=== PATIENT | female | born 1990 | race Hispanic/Latino ===

== ENCOUNTER 2018-11-25 04:39 | Emergency (ER) | payer OTHER ==
[2018-11-25] MEDS ORDERED: MORPHINE SULFATE 4 MG/1ML SYG ONE ×2 (05:34→08:03)
[2018-11-25] MEDS ORDERED: ONDANSETRON HCL 4 MG/2 ML VIAL ONE (05:34)
[2018-11-25] MEDS ORDERED: TETANUS/DIPHTHERIA TOXOID [ADULT] 0.5 ML VIAL IM ONE (05:35)
[2018-11-25 05:57] LABS: BASOPHILS % (AUTO) 0.5 % (0.0-5.0); EOSINOPHILS % (AUTO) 0.7 % (0.0-8.0); HEMATOCRIT 39.7 % (36-48); LYMPHOCYTES % (AUTO) 12.8 % (21.0-51.0); MEAN CORPUSCULAR HEMOGLOBIN 32.1 pg (27.0-33.0); MEAN CORPUSCULAR HGB CONC 34.3 g/dL (32.0-36.0); MEAN CORPUSCULAR VOLUME 93.7 fL (79-99); MONOCYTES % (AUTO) 3.8 % (3.0-13.0); NEUTROPHILS % (AUTO) 82.2 % (40.0-77.0); PLATELET COUNT (AUTO) 369 K/uL (130-400); RED BLOOD CELL COUNT(AUTO) 4.23 MIL/uL (4.00-5.50); RED CELL DISTRIBUTION WIDTH 13.8 % (11.0-15.5)
[2018-11-25 06:12] LABS: ALBUMIN 3.4 g/dL (3.5-5.0); BILIRUBIN,TOTAL 0.2 mg/dL (0.2-1.0); CREATININE 0.6 mg/dL (0.5-1.5); INR 0.92 (0.85-1.15); PARTIAL THROMBOPLASTIN TIME 26.4 SEC (26.3-35.5); POTASSIUM 3.8 mmol/L (3.5-5.1); PROTHROMBIN TIME 9.7 SEC (9.6-11.6); TOTAL PROTEIN, SERUM 7.6 g/dL (6.0-8.3)
[2018-11-25] MEDS ORDERED: CEFAZOLIN SODIUM 1 GM VIAL ONE (09:15)
== END 2018-11-25 10:19 | disposition home or self-care (01) ==
LOC: EDH 04:39
DX: S01.01XA Laceration without foreign body of scalp, initial encounter (principal); Y04.8XXA Assault by other bodily force, initial encounter; Y93.89 Activity, other specified; Y92.89 Other specified places as the place of occurrence of the external cause; Y99.8 Other external cause status
CPT/HCPCS: 12034; 36415; 70450; 70486; 80053; 81025; 85025; 85610; 85730; 90471; 90714; 96365; 96375; 96376; 99285; J0690; J2270 ×2; J2405

== ENCOUNTER 2019-02-16 22:34 | Emergency (ER) | payer OTHER ==
[2019-02-16] MEDS ORDERED: DICYCLOMINE HCL 20 MG TAB ONE (23:18)
[2019-02-16 23:25] LABS: APPEARANCE,URINE Cloudy (CLEAR); BILIRUBIN,URINE Negative (NEGATIVE); COLOR,URINE Yellow (YELLOW); GLUCOSE, URINE (UA) Negative (NEGATIVE); KETONES,URINE Negative (NEGATIVE); LEUKOCYTE ESTERASE ,URINE Trace (NEGATIVE); NITRATE,URINE Negative (NEGATIVE); OCCULT BLOOD,URINE Negative (NEGATIVE); PROTEIN,URINE Negative (NEGATIVE)
[2019-02-16 23:27] LABS: HCG,QUAL RESULT NEGATIVE (NEGATIVE)
[2019-02-16] MEDS ORDERED: LEVOFLOXACIN 500 MG TABLET ONE (23:56)
[2019-02-17] LABS: BACTERIA,URINE Few /HPF (None Seen); RBC,URINE 0-1 /HPF (0-1); WBC,URINE 0-1 /HPF (0-1)
== END 2019-02-17 00:03 | disposition home or self-care (01) ==
LOC: EDH 22:34
DX: R19.7 Diarrhea, unspecified (principal)
CPT/HCPCS: 81001; 81025

== ENCOUNTER 2019-05-08 18:20 | Emergency (ER) | payer OTHER ==
[2019-05-08 18:54] LABS: APPEARANCE,URINE Clear (CLEAR); BILIRUBIN,URINE Negative (NEGATIVE); COLOR,URINE Yellow (YELLOW); GLUCOSE, URINE (UA) Negative (NEGATIVE); KETONES,URINE Negative (NEGATIVE); LEUKOCYTE ESTERASE ,URINE Negative (NEGATIVE); NITRATE,URINE Negative (NEGATIVE); OCCULT BLOOD,URINE Negative (NEGATIVE); PROTEIN,URINE Negative (NEGATIVE); UROBILINOGEN,URINE 0.2 mg/dL (0.2-1.0)
== END 2019-05-08 20:57 | disposition home or self-care (01) ==
LOC: EDH 18:20
DX: R30.0 Dysuria (principal); M54.5 Low back pain; R11.0 Nausea
CPT/HCPCS: 81003; 81025

== ENCOUNTER 2019-05-24 18:42 | Emergency (ER) | payer OTHER ==
[2019-05-24 19:47] LABS: BASOPHILS % (AUTO) 0.8 % (0.0-5.0); HEMATOCRIT 39.6 % (36-48); LYMPHOCYTES % (AUTO) 26.6 % (21.0-51.0); MEAN CORPUSCULAR HEMOGLOBIN 31.8 pg (27.0-33.0); MEAN CORPUSCULAR HGB CONC 34.2 g/dL (32.0-36.0); MONOCYTES % (AUTO) 9.5 % (3.0-13.0); NEUTROPHILS % (AUTO) 61.1 % (40.0-77.0); NUCLEATED RED BLOOD CELLS 0.1 % (0.0-0.19); PLATELET COUNT (AUTO) 321 K/uL (130-400); RED BLOOD CELL COUNT(AUTO) 4.26 MIL/uL (4.00-5.50); RED CELL DISTRIBUTION WIDTH 14.7 % (11.0-15.5); WHITE BLOOD COUNT (AUTO) 9.9 K/uL (4.8-10.8)
[2019-05-24 19:53] LABS: APPEARANCE,URINE Clear (CLEAR); BILIRUBIN,URINE Negative (NEGATIVE); COLOR,URINE Dark Yellow (YELLOW); GLUCOSE, URINE (UA) Negative (NEGATIVE); KETONES,URINE Negative (NEGATIVE); LEUKOCYTE ESTERASE ,URINE Negative (NEGATIVE); NITRATE,URINE Negative (NEGATIVE); OCCULT BLOOD,URINE Negative (NEGATIVE); PROTEIN,URINE Trace mg/dL (NEGATIVE)
[2019-05-24 20:00] LABS: AMPHET/METH SCREEN,URINE NEGATIVE (NEGATIVE); BARBITURATE SCREEN, URINE NEGATIVE (NEGATIVE); BENZODIAZEPINES SCREEN,URINE POSITIVE (NEGATIVE); CANNABINOID SCREEN,URINE POSITIVE (NEGATIVE); COCAINE SCREEN,URINE NEGATIVE (NEGATIVE); HCG,QUAL RESULT POSITIVE (NEGATIVE); OPIATE SCREEN,URINE NEGATIVE (NEGATIVE); PHENCYCLIDINE SCREEN,URINE NEGATIVE (NEGATIVE)
[2019-05-24 20:07] LABS: BACTERIA,URINE Few /HPF (None Seen); MUCUS,URINE Moderate LPF (None Seen); RBC,URINE 0-1 /HPF (0-1); SQUAMOUS EPITHELIAL CELL,UR Few /HPF (0-2)
[2019-05-24 20:40] LABS: CREATININE 0.7 mg/dL (0.5-1.5)
[2019-05-24 20:44] LABS: ALBUMIN 3.4 g/dL (3.5-5.0); BILIRUBIN,TOTAL 0.3 mg/dL (0.2-1.0); TOTAL PROTEIN, SERUM 7.4 g/dL (6.0-8.3)
== END 2019-05-24 22:04 | disposition home or self-care (01) ==
LOC: EDH 18:42
DX: O26.891 Other specified pregnancy related conditions, first trimester (principal); R51 Headache; R03.0 Elevated blood-pressure reading, without diagnosis of hypertension; R11.0 Nausea; F41.9 Anxiety disorder, unspecified; F32.9 Major depressive disorder, single episode, unspecified; Z88.8 Allergy status to other drugs, medicaments and biological substances; Z3A.01 Less than 8 weeks gestation of pregnancy
CPT/HCPCS: 36415; 80053; 80305; 81001; 81025; 84702; 85025

== ENCOUNTER 2019-11-05 08:45 | Emergency (ER) | payer OTHER ==
[2019-11-05] MEDS ORDERED: SODIUM CHLORIDE 0.9% 1000ML 1,000 ML IV ONE (09:02)
[2019-11-05] MEDS ORDERED: DiphenhydrAMINE HCL 50 MG/ML VIAL ONE (09:04)
[2019-11-05] MEDS ORDERED: METHYLPREDNISOLONE SOD SUCC 125MG/2ML VIAL ONE (09:04)
[2019-11-05] MEDS ORDERED: FAMOTIDINE/PF 20 MG/2 ML VIAL IV ONE (09:05)
== END 2019-11-05 11:11 | disposition home or self-care (01) ==
LOC: EDH 08:45
DX: T78.40XA Allergy, unspecified, initial encounter (principal); L50.9 Urticaria, unspecified; F41.9 Anxiety disorder, unspecified; F32.9 Major depressive disorder, single episode, unspecified; X58.XXXA Exposure to other specified factors, initial encounter
CPT/HCPCS: 96374; 96375; 99284; J1200; J2930; J3490; J7030

== ENCOUNTER 2019-11-21 08:28 | Emergency (ER) | payer OTHER ==
[2019-11-21 09:07] LABS: APPEARANCE,URINE Cloudy (CLEAR); BILIRUBIN,URINE Negative (NEGATIVE); COLOR,URINE Yellow (YELLOW); GLUCOSE, URINE (UA) Negative (NEGATIVE); KETONES,URINE Trace mg/dL (NEGATIVE); LEUKOCYTE ESTERASE ,URINE Moderate (NEGATIVE); NITRATE,URINE Negative (NEGATIVE); OCCULT BLOOD,URINE Negative (NEGATIVE); PROTEIN,URINE Negative (NEGATIVE)
[2019-11-21] MEDS ORDERED: IBUPROFEN 200 MG TAB ONE (09:08)
[2019-11-21] MEDS ORDERED: IBUPROFEN 400 MG TABLET ONE (09:08)
[2019-11-21 09:13] LABS: HCG,QUAL RESULT NEGATIVE (NEGATIVE)
[2019-11-21 09:18] LABS: TRICHOMONAS,URINE Few /LPF (None Seen)
[2019-11-21 09:19] LABS: BACTERIA,URINE Few /HPF (None Seen); MUCUS,URINE Many LPF (None Seen); SQUAMOUS EPITHELIAL CELL,UR Many /HPF (0-2)
[2019-11-21 09:25] LABS: AMPHET/METH SCREEN,URINE POSITIVE (NEGATIVE); BARBITURATE SCREEN, URINE NEGATIVE (NEGATIVE); BENZODIAZEPINES SCREEN,URINE POSITIVE (NEGATIVE); CANNABINOID SCREEN,URINE POSITIVE (NEGATIVE); COCAINE SCREEN,URINE NEGATIVE (NEGATIVE); OPIATE SCREEN,URINE NEGATIVE (NEGATIVE); PHENCYCLIDINE SCREEN,URINE NEGATIVE (NEGATIVE)
== END 2019-11-21 11:33 | disposition home or self-care (01) ==
LOC: EDH 08:28
DX: S20.219A Contusion of unspecified front wall of thorax, initial encounter (principal); Y08.89XA Assault by other specified means, initial encounter; Y93.89 Activity, other specified; Y92.89 Other specified places as the place of occurrence of the external cause; Y99.8 Other external cause status; Z88.8 Allergy status to other drugs, medicaments and biological substances
CPT/HCPCS: 71045; 80305; 81001; 81025; 87088

== ENCOUNTER 2020-03-25 19:29 | Emergency (ER) | payer OTHER ==
[2020-03-25] MEDS ORDERED: ONDANSETRON HCL 4 MG/2 ML VIAL IVP ONE (19:30)
[2020-03-25] MEDS ORDERED: SODIUM CHLORIDE 0.9% 1000ML 1,000 ML IV ONE (19:30)
[2020-03-25 20:00] LABS: APPEARANCE,URINE Cloudy (CLEAR); BILIRUBIN,URINE Negative (NEGATIVE); COLOR,URINE Yellow (YELLOW); GLUCOSE, URINE (UA) Negative (NEGATIVE); KETONES,URINE Negative (NEGATIVE); LEUKOCYTE ESTERASE ,URINE Small (NEGATIVE); NITRATE,URINE Negative (NEGATIVE); OCCULT BLOOD,URINE Negative (NEGATIVE); PH,URINE 8.5 (5.0-8.0); PROTEIN,URINE Trace mg/dL (NEGATIVE)
[2020-03-25 20:00] LABS: BASOPHILS % (AUTO) 0.4 % (0.0-5.0); EOSINOPHILS % (AUTO) 1.6 % (0.0-8.0); HEMATOCRIT 38.4 % (36-48); LYMPHOCYTES % (AUTO) 25.6 % (21.0-51.0); MEAN CORPUSCULAR HEMOGLOBIN 32.2 pg (27.0-33.0); MEAN CORPUSCULAR HGB CONC 34.4 g/dL (32.0-36.0); MEAN CORPUSCULAR VOLUME 93.7 fL (79-99); MONOCYTES % (AUTO) 8.3 % (3.0-13.0); NEUTROPHILS % (AUTO) 63.7 % (40.0-77.0); PLATELET COUNT (AUTO) 347 K/uL (130-400); WHITE BLOOD COUNT (AUTO) 13.5 K/uL (4.8-10.8)
[2020-03-25 20:03] LABS: HCG,QUAL RESULT POSITIVE (NEGATIVE)
[2020-03-25 20:10] LABS: BACTERIA,URINE Few /HPF (None Seen)
[2020-03-25 20:11] LABS: MUCUS,URINE Few LPF (None Seen); SQUAMOUS EPITHELIAL CELL,UR Few /HPF (0-2)
[2020-03-25 20:29] LABS: CREATININE 0.7 mg/dL (0.5-1.5); POTASSIUM 3.3 mmol/L (3.5-5.1)
[2020-03-25 20:39] LABS: ALBUMIN 3.4 g/dL (3.5-5.0); BILIRUBIN,TOTAL 0.2 mg/dL (0.2-1.0); TOTAL PROTEIN, SERUM 7.3 g/dL (6.0-8.3)
== END 2020-03-25 22:48 | disposition home or self-care (01) ==
LOC: EDH 19:29
DX: O21.9 Vomiting of pregnancy, unspecified (principal); F41.9 Anxiety disorder, unspecified; F32.9 Major depressive disorder, single episode, unspecified; Z3A.00 Weeks of gestation of pregnancy not specified; Z88.8 Allergy status to other drugs, medicaments and biological substances
CPT/HCPCS: 36415; 76801; 80053; 81001; 81025; 83690; 84702; 85025; 96374; 99284; J2405; J7030

== ENCOUNTER 2020-04-27 20:41 | Emergency (ER) | payer OTHER ==
[2020-04-27 21:36] LABS: BASOPHILS % (AUTO) 0.4 % (0.0-5.0); EOSINOPHILS % (AUTO) 1.4 % (0.0-8.0); HEMATOCRIT 40.6 % (36-48); LYMPHOCYTES % (AUTO) 21.4 % (21.0-51.0); MEAN CORPUSCULAR HGB CONC 34.2 g/dL (32.0-36.0); MEAN CORPUSCULAR VOLUME 93.3 fL (79-99); MONOCYTES % (AUTO) 6.9 % (3.0-13.0); NEUTROPHILS % (AUTO) 69.7 % (40.0-77.0); PLATELET COUNT (AUTO) 351 K/uL (130-400); RED BLOOD CELL COUNT(AUTO) 4.35 MIL/uL (4.00-5.50); RED CELL DISTRIBUTION WIDTH 11.8 % (11.0-15.5); WHITE BLOOD COUNT (AUTO) 12.1 K/uL (4.8-10.8)
[2020-04-30] MEDS ORDERED: PREN1TAB63 PO (16:04)
== END 2020-04-27 23:08 | disposition home or self-care (01) ==
LOC: EDH 20:41
DX: O20.0 Threatened abortion (principal); F41.9 Anxiety disorder, unspecified; F32.9 Major depressive disorder, single episode, unspecified; Z88.6 Allergy status to analgesic agent; Z3A.09 9 weeks gestation of pregnancy
CPT/HCPCS: 36415; 76817; 84702; 85025; 86900; 86901

== ENCOUNTER 2020-05-01 11:07 | Day surgery (SDC) | payer OTHER ==
[2020-04-30 12:45] LABS: BASOPHILS % (AUTO) 0.4 % (0.0-5.0); EOSINOPHILS % (AUTO) 1.8 % (0.0-8.0); HEMATOCRIT 41.4 % (36-48); LYMPHOCYTES % (AUTO) 27.2 % (21.0-51.0); MEAN CORPUSCULAR HEMOGLOBIN 31.7 pg (27.0-33.0); MEAN CORPUSCULAR HGB CONC 33.3 g/dL (32.0-36.0); MEAN CORPUSCULAR VOLUME 95.2 fL (79-99); MONOCYTES % (AUTO) 5.7 % (3.0-13.0); NEUTROPHILS % (AUTO) 64.6 % (40.0-77.0); PLATELET COUNT (AUTO) 356 K/uL (130-400); RED BLOOD CELL COUNT(AUTO) 4.35 MIL/uL (4.00-5.50); RED CELL DISTRIBUTION WIDTH 11.9 % (11.0-15.5); WHITE BLOOD COUNT (AUTO) 10.1 K/uL (4.8-10.8)
[2020-04-30 15:51] VITALS: BP 145/83
[~2020-05-01] VITALS: Ht 165.1 cm; Wt 108.6 kg
[~2020-05-01 11:07] MED LIST: LACTATED RINGERS 1000ML 1,000 ML IV SCH; PREN1TAB63 PO
[2020-05-01] MEDS ORDERED: LIDOCAINE PF 2% 5ML ABBOJECT ONE (11:43)
[2020-05-01] MEDS ORDERED: DEXAMETHASONE SOD PHOSPHATE 10MG/ML 1ML VIAL ONE (11:43)
[2020-05-01] MEDS ORDERED: SUCCINYLCHOLINE CHLORIDE 20 MG/ML 10 ML VIAL ONE (11:43)
[2020-05-01] MEDS ORDERED: MIDAZOLAM HCL 1 MG/ML 2ML VIAL ONE (11:44)
[2020-05-01] MEDS ORDERED: ONDANSETRON HCL 4 MG/2 ML VIAL ONE ×3 (11:44→14:01)
[2020-05-01] MEDS ORDERED: GLYCOPYRROLATE 1 MG/5 ML SYRINGE ONE (11:45)
[2020-05-01] MEDS ORDERED: PROPOFOL 10 MG/ML 20ML VIAL IV ONE (11:45)
[2020-05-01] MEDS ORDERED: NEOSTIGMINE 5MG/5ML SYR IV ONE (11:45)
[2020-05-01] MEDS ORDERED: FENTANYL CITRATE PF 50 MCG/1 ML 2ML VIAL ONE (11:45)
[2020-05-01 12:02] VITALS: BP 122/77
[2020-05-01] MEDS ORDERED: OXYTOCIN 10 USP UNITS/ML ONE ×3 (13:17→13:41)
[2020-05-01] MEDS ORDERED: MEPERIDINE-PF 25 MG/ML SYG ONE (14:01)
[2020-05-01 14:50] VITALS: BP 140/78
--- NOTE | 2020-05-01 14:50 | NUR ---
PATIENT ARRIVED TO DAY PATIENT BY CAMACHO BARNEY. PATIENT [id number], RESPIRATIONS UNLABORED, VITAL SIGNS STABLE. DENIES ANY PAIN AT THIS TIME. ROXANNE PAD IN PLACE WITH MINIMAL BLEEDING NOTED.
[2020-05-01 15:05] VITALS: BP 122/77
--- NOTE | 2020-05-01 15:12 | NUR ---
DISCHARGE INSTRUCTIONS PROVIDED TO PATIENT'S MOTHER VIA TELEPHONE (GEORGE HENDERSON). FOLLOW UP APPOINTMENT PROVIDED AND PRESCRIPTION PROVIDED TO PATIENT TO TAKE HOME. ALL QUESTIONS/CONCERNS ADDRESSED.
--- NOTE | 2020-05-01 15:30 | NUR ---
PATIENT DISCHARGED FROM FACILITY VIA WHEELCHAIR AND ASSISTED INTO PRIVATE VEHICLE DRIVEN BY PATIENT'S MOTHER
== END 2020-05-01 15:30 | disposition home or self-care (01) ==
LOC: DAH 11:07
PROVIDERS: ATTEND Specialist
DX: O02.1 Missed abortion (principal); E66.9 Obesity, unspecified; Z20.828 Contact with and (suspected) exposure to other viral communicable diseases
CPT/HCPCS: 36415; 59820; 84703; 85025; 87426; A4215; A4221; A4222; A4223; A4663; J0330; J1100; J2001; J2175; J2250; J2405 ×3; J2590 ×3; J2704; J2710; J3010; J3490; J7120 ×2; U0003

== ENCOUNTER 2020-07-11 20:52 | Emergency (ER) | payer OTHER ==
[~2020-07-11 20:52] MED LIST changes: -LACTATED RINGERS 1000ML 1,000 ML IV SCH
[2020-07-11 21:28] LABS: APPEARANCE,URINE Clear (CLEAR); BILIRUBIN,URINE Negative (NEGATIVE); COLOR,URINE Yellow (YELLOW); GLUCOSE, URINE (UA) Negative (NEGATIVE); KETONES,URINE 15 mg/dL (NEGATIVE); LEUKOCYTE ESTERASE ,URINE Trace (NEGATIVE); NITRATE,URINE Negative (NEGATIVE); OCCULT BLOOD,URINE Negative (NEGATIVE); PH,URINE 6.5 (5.0-8.0); PROTEIN,URINE Negative (NEGATIVE); UROBILINOGEN,URINE 0.2 mg/dL (0.2-1.0)
[2020-07-11 21:31] LABS: HCG,QUAL RESULT NEGATIVE (NEGATIVE)
[2020-07-11 21:36] LABS: AMPHET/METH SCREEN,URINE NEGATIVE (NEGATIVE); BARBITURATE SCREEN, URINE NEGATIVE (NEGATIVE); BENZODIAZEPINES SCREEN,URINE NEGATIVE (NEGATIVE); CANNABINOID SCREEN,URINE NEGATIVE (NEGATIVE); COCAINE SCREEN,URINE NEGATIVE (NEGATIVE); OPIATE SCREEN,URINE NEGATIVE (NEGATIVE); PHENCYCLIDINE SCREEN,URINE NEGATIVE (NEGATIVE)
[2020-07-11 21:40] LABS: RBC,URINE 0-1 /HPF (0-1)
[2020-07-11 21:42] LABS: BACTERIA,URINE Few /HPF (None Seen); SQUAMOUS EPITHELIAL CELL,UR Moderate /HPF (0-2)
[2020-07-11 21:44] LABS: MUCUS,URINE Few LPF (None Seen)
[2020-07-11] MEDS ORDERED: DEXAMETHASONE SOD PHOSPHATE 10MG/ML 1ML VIAL ONE (22:15)
[2020-07-11] MEDS ORDERED: KETOROLAC TROMETHAMINE 60 MG/2 ML VIAL ONE (22:15)
== END 2020-07-11 22:49 | disposition home or self-care (01) ==
LOC: EDH 20:52
DX: G89.29 Other chronic pain (principal); M54.5 Low back pain; F41.9 Anxiety disorder, unspecified; F32.9 Major depressive disorder, single episode, unspecified; Z88.8 Allergy status to other drugs, medicaments and biological substances
CPT/HCPCS: 80305; 81001; 81025; 96372 ×2; 99284; J1100; J1885

== ENCOUNTER 2020-09-28 21:24 | Emergency (ER) | payer OTHER ==
[2020-09-28] MEDS ORDERED: FAMOTIDINE 20MG TAB ONE (21:54)
[2020-09-28] MEDS ORDERED: CLINDAMYCIN IVPB 600MG/50ML 50 ML IV ONE (21:54)
[2020-09-28] MEDS ORDERED: HYDROCODONE/ACETAMINOPHEN 10/325 MG TAB ONE (21:55)
[2020-09-28] MEDS ORDERED: DIPHENHYDRAMINE HCL 25 MG CAPSULE ONE (21:55)
[2020-09-28 22:11] LABS: BASOPHILS % (AUTO) 0.4 % (0.0-5.0); EOSINOPHILS % (AUTO) 1.4 % (0.0-8.0); HEMATOCRIT 38.6 % (36-48); LYMPHOCYTES % (AUTO) 26.4 % (21.0-51.0); MEAN CORPUSCULAR HEMOGLOBIN 31.1 pg (27.0-33.0); MEAN CORPUSCULAR HGB CONC 34.5 g/dL (32.0-36.0); MEAN CORPUSCULAR VOLUME 90.4 fL (79-99); MONOCYTES % (AUTO) 5.9 % (3.0-13.0); NEUTROPHILS % (AUTO) 65.6 % (40.0-77.0); PLATELET COUNT (AUTO) 363 K/uL (130-400); RED BLOOD CELL COUNT(AUTO) 4.27 MIL/uL (4.00-5.50); RED CELL DISTRIBUTION WIDTH 11.9 % (11.0-15.5)
[2020-09-28 22:25] LABS: CREATININE 0.7 mg/dL (0.5-1.5); POTASSIUM 3.4 mmol/L (3.5-5.1)
[2020-09-28 22:33] LABS: ALBUMIN 3.8 g/dL (3.5-5.0); BILIRUBIN,TOTAL 0.3 mg/dL (0.2-1.0); CRP QUANTITATIVE 18.7 mg/L (0.00-9.0); TOTAL PROTEIN, SERUM 7.9 g/dL (6.0-8.3)
[2020-09-28] MEDS ORDERED: ACYCLOVIR 200 MG CAPSULE ONE (22:53)
== END 2020-09-28 23:15 | disposition home or self-care (01) ==
LOC: EDH 21:24
DX: L03.114 Cellulitis of left upper limb (principal); L23.9 Allergic contact dermatitis, unspecified cause; B02.8 Zoster with other complications; F41.9 Anxiety disorder, unspecified; F32.9 Major depressive disorder, single episode, unspecified; Z88.8 Allergy status to other drugs, medicaments and biological substances
CPT/HCPCS: 36415; 80053; 85025; 86140; 96365; 99284; J3490; Q0163

== ENCOUNTER 2020-10-19 20:00 | Emergency (ER) | payer OTHER ==
[2020-10-19] MEDS ORDERED: KETOROLAC TROMETHAMINE 30MG/ML ONE (20:56)
[2020-10-19] MEDS ORDERED: ORPHENADRINE CITRATE 30 MG/ML ML ONE (20:56)
== END 2020-10-19 22:03 | disposition home or self-care (01) ==
LOC: EDH 20:00
DX: S80.01XA Contusion of right knee, initial encounter (principal); R29.91 Unspecified symptoms and signs involving the musculoskeletal system; F41.9 Anxiety disorder, unspecified; F32.9 Major depressive disorder, single episode, unspecified; Z88.8 Allergy status to other drugs, medicaments and biological substances; W18.39XA Other fall on same level, initial encounter; Y93.01 Activity, walking, marching and hiking; Y92.89 Other specified places as the place of occurrence of the external cause; Y99.8 Other external cause status
CPT/HCPCS: 72100; 73562; 96372 ×2; 99284; J1885; J2360

== ENCOUNTER 2021-03-04 07:32 | Emergency (ER) | payer OTHER ==
[~2021-03-04] VITALS: Ht 162.6 cm; Wt 99.8 kg
[2021-03-04 07:33] VITALS: BP 158/90
[2021-03-04] MEDS ORDERED: LACTATED RINGERS 1000ML 1,000 ML IV SCH (09:00)
[2021-03-04] MEDS ORDERED: KETOROLAC 30MG VIAL (30MG/ML) IV SCH (09:00)
[2021-03-04] MEDS ORDERED: DiphenhydrAMINE HCL 50 MG/ML VIAL IV SCH (09:00)
[2021-03-04] MEDS ORDERED: PROCHLORPERAZINE EDISYLATE 5 MG/ML 2 ML VIAL IVP SCH (09:00)
[2021-03-04] MEDS ORDERED: 0.9%NACL 1000ML 1,000 ML IV ONE (09:25)
[2021-03-04] MEDS ORDERED: PROCHLORPERAZINE 10MG/2ML INJ ONE (09:28)
[2021-03-04] MEDS ORDERED: PROCHLORPERAZINE 10MG/2ML INJ IV ONE (09:35)
[2021-03-04] MEDS ORDERED: OSEL75 PO (10:33)
[2021-03-04] MEDS ORDERED: IBUP-2070 PO (10:33)
[2021-03-04] MEDS ORDERED: PROC5TAB54 PO (10:39)
== END 2021-03-04 11:08 | disposition home or self-care (01) ==
LOC: EDH 07:32
DX: G43.909 Migraine, unspecified, not intractable, without status migrainosus (principal); R19.7 Diarrhea, unspecified; R11.0 Nausea; J10.1 Influenza due to other identified influenza virus with other respiratory manifestations; Z79.1 Long term (current) use of non-steroidal anti-inflammatories (NSAID); Z20.822 Contact with and (suspected) exposure to COVID-19
CPT/HCPCS: 71045; 87635; 87804 ×2; 96361; 96374; 96375; 99284; C9803; J0780; J1200; J1885; J7030

== ENCOUNTER 2021-03-18 14:21 | Emergency (ER) | payer OTHER ==
[~2021-03-18] VITALS: Ht 162.6 cm; Wt 103.4 kg
[~2021-03-18 14:21] MED LIST changes: +IBUP-2070 PO; +OSEL75 PO; +PROC5TAB54 PO
[2021-03-18] MEDS ORDERED: ACETAMINOPHEN 500 MG TABLET PO ONE (18:00)
[2021-03-18] MEDS ORDERED: D-ME1POW16 PO (18:07)
[2021-03-18] MEDS ORDERED: FLUT1DIS IH (18:07)
[2021-03-18] MEDS ORDERED: ALBUHFA IH (18:07)
[2021-03-18 18:35] VITALS: BP 131/86
== END 2021-03-18 18:39 | disposition home or self-care (01) ==
LOC: EDH 14:21
DX: U07.1 COVID-19 (principal); J22 Unspecified acute lower respiratory infection; G43.909 Migraine, unspecified, not intractable, without status migrainosus; Z79.1 Long term (current) use of non-steroidal anti-inflammatories (NSAID); Z79.51 Long term (current) use of inhaled steroids; Z79.899 Other long term (current) drug therapy
CPT/HCPCS: 71045; 87635; 87804 ×2; 87880; 99284; C9803

== ENCOUNTER 2021-11-18 21:12 | Emergency (ER) | payer OTHER ==
[~2021-11-18] VITALS: Ht 162.6 cm; Wt 95.3 kg
[~2021-11-18 21:12] MED LIST changes: +ALBUHFA IH; +D-ME1POW16 PO; +FLUT1DIS IH
[2021-11-18] MEDS ORDERED: 0.9%NACL 1000ML 1,000 ML IV SCH (21:30)
[2021-11-18 21:48] LABS: APPEARANCE,URINE Clear (CLEAR); BILIRUBIN,URINE Negative (NEGATIVE); COLOR,URINE Yellow (YELLOW); GLUCOSE, URINE (UA) Negative (NEGATIVE); KETONES,URINE Trace mg/dL (NEGATIVE); LEUKOCYTE ESTERASE ,URINE Small (NEGATIVE); NITRATE,URINE Negative (NEGATIVE); OCCULT BLOOD,URINE Negative (NEGATIVE); PH,URINE 7.5 (5.0-8.0); PROTEIN,URINE Negative (NEGATIVE); UROBILINOGEN,URINE 0.2 mg/dL (0.2-1.0)
[2021-11-18 21:50] LABS: HCG,QUAL RESULT NEGATIVE (NEGATIVE)
[2021-11-18] MEDS ORDERED: FAMOTIDINE 20MG VIAL IV ONE (22:00)
[2021-11-18] MEDS ORDERED: ONDANSETRON 4MG INJ IVP ONE (22:00)
[2021-11-18] MEDS ORDERED: MORPHINE 4 MG SYG IVP ONE (22:00)
[2021-11-18 22:01] LABS: BACTERIA,URINE Few /HPF (None Seen); RBC,URINE 0-1 /HPF (0-1); SQUAMOUS EPITHELIAL CELL,UR Rare /HPF (0-2)
[2021-11-18 22:09] LABS: BASOPHILS % (AUTO) 0.6 % (0.0-5.0); EOSINOPHILS % (AUTO) 1.7 % (0.0-8.0); HEMATOCRIT 39.5 % (36-48); LYMPHOCYTES % (AUTO) 33.1 % (21.0-51.0); MEAN CORPUSCULAR HEMOGLOBIN 31.1 pg (27.0-33.0); MEAN CORPUSCULAR HGB CONC 34.2 g/dL (32.0-36.0); MONOCYTES % (AUTO) 6.6 % (3.0-13.0); NEUTROPHILS % (AUTO) 57.8 % (40.0-77.0); PLATELET COUNT (AUTO) 291 K/uL (130-400); RED BLOOD CELL COUNT(AUTO) 4.34 MIL/uL (4.00-5.50); RED CELL DISTRIBUTION WIDTH 12.1 % (11.0-15.5); WHITE BLOOD COUNT (AUTO) 12.1 K/uL (4.8-10.8)
[2021-11-18 22:19] LABS: CREATININE 0.7 mg/dL (0.5-1.5); POTASSIUM 3.7 mmol/L (3.5-5.1)
[2021-11-18 22:24] LABS: ALBUMIN 3.6 g/dL (3.5-5.0); BILIRUBIN,TOTAL 0.4 mg/dL (0.2-1.0); TOTAL PROTEIN, SERUM 7.6 g/dL (6.0-8.3)
[2021-11-18] MEDS ORDERED: CEPH500B PO (23:23)
[2021-11-18] MEDS ORDERED: DICY20TA2 PO (23:23)
[2021-11-18] MEDS ORDERED: ONDA4TAB10 PO (23:23)
[2021-11-18] MEDS ORDERED: L.AC1CAP6 PO (23:23)
[2021-11-18 23:26] VITALS: BP 112/68
== END 2021-11-18 23:48 | disposition home or self-care (01) ==
LOC: EDH 21:12
DX: K52.9 Noninfective gastroenteritis and colitis, unspecified (principal); N39.0 Urinary tract infection, site not specified; F32.A Depression, unspecified; M79.7 Fibromyalgia; Z79.1 Long term (current) use of non-steroidal anti-inflammatories (NSAID); Z79.51 Long term (current) use of inhaled steroids; Z79.899 Other long term (current) drug therapy
CPT/HCPCS: 36415; 80053; 81001; 81025; 83690; 85025; 87804 ×2; 96361; 96374; 99284; 96375; J2270; J2405; J3490; J7030

== ENCOUNTER 2021-12-10 08:34 | Emergency (ER) | payer OTHER ==
[~2021-12-10] VITALS: Ht 162.6 cm; Wt 93.0 kg
[~2021-12-10 08:34] MED LIST changes: +CEPH500B PO; +DICY20TA2 PO; +L.AC1CAP6 PO; +ONDA4TAB10 PO
[2021-12-10 08:39] VITALS: BP 112/44
[2021-12-10] MEDS ORDERED: SOLU-MEDROL 40MG VIAL ONE (08:56)
[2021-12-10] MEDS ORDERED: PRED20TA3 PO (09:05)
[2021-12-10] MEDS: SOLU-MEDROL 125MG VIAL IM SCH ×2 (09:06→09:43)
[2021-12-10] MEDS ORDERED: DIPH25 PO (09:31)
[2021-12-10] MEDS ORDERED: DIPHENHYDRAMINE HCL 25 MG CAPSULE ONE (09:40)
== END 2021-12-10 09:44 | disposition home or self-care (01) ==
LOC: EDH 08:34
DX: L50.0 Allergic urticaria (principal); G43.909 Migraine, unspecified, not intractable, without status migrainosus; Z88.8 Allergy status to other drugs, medicaments and biological substances; Z79.899 Other long term (current) drug therapy
CPT/HCPCS: 96372; 99283; J2920; Q0163

== ENCOUNTER 2021-12-13 20:17 | Emergency (ER) | payer OTHER ==
[~2021-12-13] VITALS: Ht 162.6 cm; Wt 92.1 kg
[~2021-12-13 20:17] MED LIST changes: +DIPH25 PO; +PRED20TA3 PO
[2021-12-13 20:50] LABS: BASOPHILS % (AUTO) 0.2 % (0.0-5.0); EOSINOPHILS % (AUTO) 0.1 % (0.0-8.0); HEMATOCRIT 43.7 % (36-48); LYMPHOCYTES % (AUTO) 25.7 % (21.0-51.0); MEAN CORPUSCULAR HEMOGLOBIN 30.2 pg (27.0-33.0); MEAN CORPUSCULAR HGB CONC 33.2 g/dL (32.0-36.0); MONOCYTES % (AUTO) 5.2 % (3.0-13.0); NEUTROPHILS % (AUTO) 68.4 % (40.0-77.0); PLATELET COUNT (AUTO) 336 K/uL (130-400); WHITE BLOOD COUNT (AUTO) 15.7 K/uL (4.8-10.8)
[2021-12-13 20:51] LABS: APPEARANCE,URINE Clear (CLEAR); BILIRUBIN,URINE Negative (NEGATIVE); COLOR,URINE Yellow (YELLOW); GLUCOSE, URINE (UA) Negative (NEGATIVE); KETONES,URINE Trace mg/dL (NEGATIVE); LEUKOCYTE ESTERASE ,URINE Small (NEGATIVE); NITRATE,URINE Negative (NEGATIVE); OCCULT BLOOD,URINE Small (NEGATIVE); PH,URINE 6.5 (5.0-8.0); PROTEIN,URINE Negative (NEGATIVE); UROBILINOGEN,URINE 0.2 mg/dL (0.2-1.0)
[2021-12-13 20:56] LABS: HCG,QUAL RESULT NEGATIVE (NEGATIVE)
[2021-12-13 20:59] LABS: AMPHET/METH SCREEN,URINE NEGATIVE (NEGATIVE); BARBITURATE SCREEN, URINE NEGATIVE (NEGATIVE); BENZODIAZEPINES SCREEN,URINE POSITIVE (NEGATIVE); CANNABINOID SCREEN,URINE POSITIVE (NEGATIVE); COCAINE SCREEN,URINE NEGATIVE (NEGATIVE); OPIATE SCREEN,URINE NEGATIVE (NEGATIVE); PHENCYCLIDINE SCREEN,URINE NEGATIVE (NEGATIVE)
[2021-12-13 21:03] LABS: CARBON DIOXIDE 24 mmol/L (21-32); CHLORIDE 101 mmol/L (101-111); CREATININE 0.8 mg/dL (0.5-1.5); GLOMERULAR FILTR. RATE CALC 90 mL/min (>60); GLUCOSE,RANDOM 83 mg/dL (70-105); POTASSIUM 3.8 mmol/L (3.5-5.1); SODIUM SERUM 138 mmol/L (136-145); UREA NITROGEN, BLOOD 9 mg/dL (7-18)
[2021-12-13 21:05] LABS: ACETAMINOPHEN < 1 mcg/mL (10-30); ALANINE AMINOTRANSFERASE 125 U/L (12-78); ALBUMIN 4.2 g/dL (3.5-5.0); ALCOHOL, BLOOD < 3 mg/dL (0-10); ASPARTATE AMINOTRANSFERASE 52 U/L (10-37); BILIRUBIN,TOTAL 0.4 mg/dL (0.2-1.0); SALICYLATE < 2.8 mg/dL (2.8-20.0); TOTAL PROTEIN, SERUM 7.8 g/dL (6.0-8.3)
[2021-12-13 21:08] LABS: BACTERIA,URINE Rare /HPF (None Seen); RBC,URINE None Seen /HPF (0-1); SQUAMOUS EPITHELIAL CELL,UR 0-2 /HPF (0-2); WBC,URINE 0-1 /HPF (0-1)
[2021-12-14] MEDS ORDERED: DIPHENHYDRAMINE HCL 25 MG CAPSULE PO ONE (00:30)
[2021-12-14 00:47] VITALS: BP 118/62
[2021-12-14] MEDS ORDERED: HYDROXYZINE 25 MG TABLET ONE (01:07)
[2021-12-14] MEDS ORDERED: HYDROCODONE/ACETAMINOPHEN 10/325 MG TAB ONE (01:07)
[2021-12-14] MEDS ORDERED: SOLU-MEDROL 125MG VIAL ONE (01:07)
[2021-12-14] MEDS ORDERED: HYDROCODONE/ACETAMINOPHEN 10/325 MG TAB PO ONE (01:30)
[2021-12-14] MEDS ORDERED: HYDROXYZINE 25 MG TABLET PO ONE (01:30)
[2021-12-14] MEDS ORDERED: SOLU-MEDROL 125MG VIAL IM ONE (01:30)
== END 2021-12-14 01:29 | disposition home or self-care (01) ==
LOC: EDH 20:17
DX: F12.90 Cannabis use, unspecified, uncomplicated (principal); R45.851 Suicidal ideations; Z20.822 Contact with and (suspected) exposure to COVID-19; Z79.1 Long term (current) use of non-steroidal anti-inflammatories (NSAID); Z79.51 Long term (current) use of inhaled steroids; Z79.52 Long term (current) use of systemic steroids; Z79.899 Other long term (current) drug therapy
CPT/HCPCS: 36415; 80053; 80305; 81001; 81025; 85025; 87635; 96372; 99284; C9803; G0481; J2930; Q0163